=== PATIENT | female | born 2000 | race Caucasian/White ===

== ENCOUNTER 2023-07-23 10:49 | Outpatient (CLI) | payer MEDICAID ==
[~2023-07-23] VITALS: Ht 152.4 cm; Wt 55.4 kg
[2023-07-23 11:15] VITALS: BP 94/59
[2023-07-23 11:47] LABS: CLARITY,URINE CLEAR; COLOR,URINE YELLOW; GLUCOSE, URINE (UA) NEGATIVE (NEGATIVE); KETONES,URINE NEGATIVE (NEGATIVE); PROTEIN,URINE NEGATIVE (NEGATIVE)
[2023-07-23 11:48] LABS: BACTERIA,URINE MODERATE /HPF; BILIRUBIN,URINE NEGATIVE (NEGATIVE); LEUKOCYTE ESTERASE ,URINE NEGATIVE (NEGATIVE); NITRITE,URINE NEGATIVE (NEGATIVE)
[2023-07-23 12:30] VITALS: BP 97/56
--- NOTE | 2023-07-24 08:26 | Physician Query-Final Dx ---
VAN,07/24/23 0826: Clinic Account Progress/Dx Physician Query: Please give diagnosis Please include # weeks gestation Date of Service Jul 23, 2023 at 10:49 ANA LUISA HALE MD 08/09/23 1744: Clinic Account Progress/Dx DIAGNOSIS: Diagnosis Second Trimester 23 week gestation Nausea and vomiting in VAN,OctJul 24, 2023 08:26 ANA LUISA HALE MD Aug 09, 2023 17:44
== END 2023-07-23 14:15 | disposition home or self-care (01) ==
LOC: LDRP 10:49 → WSo 10:49
PROVIDERS: ATTEND Family Medicine
DX: O21.2 Late vomiting of pregnancy (principal); Z3A.23 23 weeks gestation of pregnancy
CPT/HCPCS: 81000; 87088; 99213